=== PATIENT | male | born 1985 | race Caucasian/White ===

== ENCOUNTER 2017-06-21 11:56 | Emergency (ER) | payer OTHER ==
[~2017-06-21] VITALS: Ht 167.6 cm; Wt 65.8 kg
[~2017-06-21 11:56] MED LIST: LEVAQUIN500 MG PO; NOMEDS XX
--- OUTSIDE RECORDS SUMMARY | 2017-06-21 12:00 | External Medical Summary Rpt | CCD ---
Author Author , DELFINO SALEH Address Unknown Phone [email or web address] Purpose Continuity of Care Document - through 2016
--- OUTSIDE RECORDS SUMMARY | 2017-06-21 12:00 | External Medical Summary Rpt | CCD ---
Author Author , DELFINO SALEH Address Unknown Phone [email or web address] Purpose Continuity of Care Document - through 2016
--- OUTSIDE RECORDS SUMMARY | 2017-06-21 12:00 | External Medical Summary Rpt | CCD ---
Author Author [employer] Organization [employer] Address Unknown Phone Unavailable Purpose Continuity of Care Document - through 2016
--- OUTSIDE RECORDS SUMMARY | 2017-06-21 12:00 | External Medical Summary Rpt | CCD ---
Author Author , DELFINO SALEH Address Unknown Phone [email or web address] Immunization Name Date Rout CVX Reac Dose Comm Prov Is Faci e tion ent ider Refu lity Give sed n Td 03-2 9 999 Hist H109 No H109 (bret 6-19 oric lt), 98 al Info adso rmat rbed ion - Sour ce Unsp ecif ied
--- OUTSIDE RECORDS SUMMARY | 2017-06-21 12:00 | External Medical Summary Rpt | CCD ---
Author Author , DELFINO SALEH Address Unknown Phone Immunization Name Date Rout CVX Reac Dose Comm Prov Is Faci e tion ent ider Refu lity Give sed n Td 03-2 9 999 Hist H109 No H109 (bret 6-19 oric lt), 98 al Info adso rmat rbed ion - Sour ce Unsp ecif ied
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
[2017-06-21 13:36] LABS: HEMOGLOBIN 14.7 g/dL (14.1-18.0); LYMPH # 2.4 K/mm3 (0.7-4.5); LYMPH % 22.9 % (10-50)
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
[2017-06-21 13:47] LABS: BUN 5 mg/dL (7-18)
[2017-06-21 13:48] LABS: GFR (ESTIMATED) 111 ML/MIN (>60)
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
[2017-06-21] MEDS ORDERED: ZOFRAN ODT4 MG PO (16:27)
[2017-06-21] MEDS ORDERED: ULTRAM50 MG PO (16:27)
[2017-06-21 16:46] VITALS: BP 135/96
--- NOTE | 2017-06-21 17:49 | RADIOLOGY REPORT PS360 ---
US GALLBLADDER (ABD LTD) COMPARISON: CT scan abdomen pelvis same date HISTORY: ] Quadrant pain for 2 weeks, some vomiting TECHNIQUE: Targeted ultrasound right upper quadrant FINDINGS: The pancreas is grossly normal although a portion of the tail is obscured by bowel gas. The liver is normal size and liver parenchyma appears normal. The gallbladder is normal size and there is a small amount of biliary sludge layering along the dependent wall the gallbladder. No definite gallstones are seen. There is borderline thickening of the gallbladder wall but there is no pericholecystic fluid. The common bile is normal caliber. Right kidney measures 11.4 x 4.8 x 5.0 cm and shows a good cortical medullary junction with no hydronephrosis or other abnormality. IMPRESSION: [id number] amount biliary sludge, no other abnormality seen
== END 2017-06-21 16:46 | disposition still patient (30) ==
LOC: UTC 11:56 → ER 11:59
PROVIDERS: Emergency Medicine
DX: K80.50 Calculus of bile duct without cholangitis or cholecystitis without obstruction (principal); F17.210 Nicotine dependence, cigarettes, uncomplicated
CPT/HCPCS: J2405

== ENCOUNTER → 2017-07-11 | Outpatient (CLI) | payer OTHER ==
[~2017-07-11] MED LIST changes: +ULTRAM50 MG PO; +ZOFRAN ODT4 MG PO
--- NOTE | 2017-07-11 13:56 | RADIOLOGY REPORT PS360 ---
[facility] HEPATOBILIARY SCAN HISTORY: RUQ PAIN ORDERING PHYSICIAN: Brad Nagy MD PATIENT AGE: 32 years COMPARISON: None DOSE: 8.17 mCi technetium Choletec Fatty meal for gallbladder contraction FINDINGS: Homogeneous activity is present within the hepatic parenchyma. Activity is present in the gallbladder by 10 minutes. Activity is present in the small bowel by 10 minutes. The gallbladder ejection fraction is calculated to be 89% The patient did not report pain or other symptoms during the fatty meal. IMPRESSION: Unremarkable hepatobiliary scan and gallbladder ejection fraction. No evidence of common or cystic duct obstruction with normal gallbladder ejection fraction
== END ==
LOC: RAD 10:15
DX: R10.11 Right upper quadrant pain (principal)
CPT/HCPCS: A9537